=== PATIENT | male | born 1990 | race Caucasian/White ===

== ENCOUNTER 2023-08-07 13:51 | Emergency (ER) | payer OTHER, SELFPAY ==
[2023-08-07 13:58] VITALS: BP 159/112; PULSE 94; TEMP 36.9; O2SAT 98; BMI 42.4
--- NOTE | 2023-08-07 14:32 | CT_ITS ---
[facility] [id number] Patient Name: JARRED JOSÉ MRN: [id number] date: 1990 Sex: M Assigned Patient Location: ER Current Patient Location: ER Accession/Order Number: [id number] Exam Date: 08/07/2023 14:53 Report Date: 08/07/2023 15:37 At the request of: RUBY ERICKSON Procedure: CT lumbar spine wo con EXAM: CT lumbar spine wo con HISTORY: Lumbar radiculopathy COMPARISON: None. TECHNIQUE: CT lumbar spine without contrast. Multiplanar reformats obtained. The current study utilizes one or more of the following dose-reduction techniques: automated exposure control, iterative reconstruction, and/or manual adjustment of tube current and voltage for size. FINDINGS: No evidence of acute fracture or traumatic malalignment. Mild disc bulging and endplate osteophyte formation at the L2-L3 level. Mild rightward spinal canal stenosis. Neural foramen patent. Patent spinal canal neural foramen at the L3-L4 level. 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 Likely involvement of the descending L5 nerve root. Bilateral L4-L5 neural foramen are patent. Moderate disc degeneration at L5-S1 with disc bulging and endplate osteophyte formation. Bilateral L5-S1 neural foramen are grossly patent. Mild to moderate stenosis of the spinal canal at the L5-S1 level. CT/CT lumbar spine wo con IMPRESSION: Disc degeneration and disc extrusion with endplate osteophyte formation at the L4-L5 level. Predominantly right paracentral with moderate to severe narrowing of the right hemicanal. Likely involvement of the descending right L5 nerve root. Electronically authenticated by: SYED SEYMOUR Date: 08/07/2023 15:37
--- NOTE | 2023-08-07 14:33 | ED_ITS ---
HPI HPI - Back Pain/Injury General Chief Complaint: Back Pain/Injury Stated Complaint: LOWER BACK PAIN Time Seen by Provider: 08/07/23 14:16 Source: patient Mode of arrival: walk-in Limitations: no limitations History of Present Illness HPI Narrative: This patient is here complaining of back pain. He has had previous back surgery by Dr. Martinez Pierce a number of years ago. He was told that he had 1 disc replaced but he had 2 more bulging disc but they never got a second or third procedure. He has been doing pretty well. He went to work [employer] and while at work he started experiencing pain. He does some physical labor but he could not describe any 1 specific event that precipitated his discomfort. 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 After he had surgery he did not undergo any other treatment such as epidural injections or physical therapy. He had all those treatments before he eventually had spine surgery. He has no loss of bowel or bladder function. The pain seems today to be rotating from the lumbar area down the lateral aspect of his thigh to the knee area. He did not take any pain decayed's or muscle relaxants before he arrived here in the ER. He does have a primary care doctor. Related Data Home Medications ?Medication ?Instructions ?Recorded ?Confirmed allopurinol 300 mg tablet 300 mg PO DAILY 08/07/23 08/07/23 amlodipine 10 mg tablet 10 mg PO DAILY 08/07/23 08/07/23 cefuroxime axetil 250 mg tablet 250 mg PO Q12H 08/07/23 08/07/23 cyclobenzaprine 10 mg tablet 10 mg PO Q12H 08/07/23 08/07/23 lisinopril 10 mg tablet 10 mg PO DAILY 08/07/23 08/07/23 lisinopril 40 mg tablet 40 mg PO DAILY 08/07/23 08/07/23 prednisone 10 mg tablet 10 mg PO .taper 08/07/23 08/07/23 prednisone 20 mg tablet 20 mg PO Q12H 08/07/23 08/07/23 Allergies Allergy/AdvReac Type Severity Reaction Status Date / Time clarithromycin [From Biaxin] AdvReac Mild Verified 08/07/23 13:56 Opioid HPI Opioid Management Most Recent Opioid Data: Last ED Pain Assessment 08/07/23 14:09 Exam Narrative Exam Narrative: Pleasant gentleman here with his moves about with extreme caution and deliberation. He can sit up straight at the bedside. There is no evidence of vascular ischemia to the lower extremities. Muscle development is good. He is able to do heel walking and toe walking with discomfort but no obvious weakness. Deep tendon reflexes are absent at patella bilaterally. He also has very weak patellar reflex bilaterally but they are symmetrical. He seems to have some weakness on the right extensor houses longus toe strength. Skin integument are otherwise normal there is no indication of shingles or zoster. Constitutional Vital Signs, click to edit/add: Last Vital Signs Temp 98.4 F 08/07/23 13:58 Pulse 83 08/07/23 15:08 Resp 22 H 08/07/23 15:08 BP 135/91 08/07/23 15:08 Pulse Ox 97 08/07/23 15:08 O2 Del Method Room Air 08/07/23 13:58 Course Vital Signs Vital signs: Vital Signs Temperature 98.4 F 08/07/23 13:58 Pulse Rate 94 H 08/07/23 13:58 Respiratory Rate 18 08/07/23 13:58 Blood Pressure 159/112 H 08/07/23 13:58 Pulse Oximetry 98 08/07/23 13:58 Oxygen Delivery Method Room Air 08/07/23 13:58 Temperature 98.4 F 08/07/23 13:58 Pulse Rate 83 08/07/23 15:08 Respiratory Rate 22 H 08/07/23 15:08 Blood Pressure 135/91 08/07/23 15:08 Pulse Oximetry 97 08/07/23 15:08 Oxygen Delivery Method Room Air 08/07/23 13:58 MDM - Back Pain/Injury MDM Narrative Medical decision making narrative: This patient has had surgery previously and was told he has several more discogenic problems. Today's CT scan confirms that information and probable consistent with L5 nerve root irritation. He was given generous dose of analgesic here in the ER and I will give him a prescription. First thing he needs to do is check with his insurance plan to see what providers are in his network and then he needs a referral. If it is his previous physician he should be able to self refer. Otherwise his primary care doctor may have to intervene. He does have prednisone at home he is taking 10 mg 5 times a day and then titrating down. He does have muscle relaxants at home as well. Discharge Plan Discharge Stand Alone Forms: Portal Instructions Chief Complaint: Back Pain/Injury Clinical Impression: Acute lumbar radiculopathy, Lumbar radiculopathy Patient Disposition: Home, Self-Care Time of Disposition Decision: 16:02 Prescriptions / Home Meds: No Action allopurinol 300 mg tablet 300 mg PO DAILY amlodipine 10 mg tablet 10 mg PO DAILY cyclobenzaprine 10 mg tablet 10 mg PO Q12H lisinopril 10 mg tablet 10 mg PO DAILY lisinopril 40 mg tablet 40 mg PO DAILY prednisone 10 mg tablet 10 mg PO .taper prednisone 20 mg tablet 20 mg PO Q12H cefuroxime axetil 250 mg tablet 250 mg PO Q12H Print Language: [place] Additional Instructions: Continue your prednisone/Percocet as needed. Dispense 20/call Wednesday to follow- up with local compliance review specialist Referrals: Physician,Non-Staff, [Primary Care Provider] - 1 week
[2023-08-07] MEDS: HYDROMORPHONE HCL 1 MG/ML CARTRIDGE 2 MG IM (14:44)
[2023-08-07] MEDS: ORPHENADRINE 60 MG/ 2 ML VIAL IM (14:45)
[2023-08-07 15:08] VITALS: BP 135/91; PULSE 83; O2SAT 97
== END 2023-08-07 16:25 | disposition home or self-care (01) ==
PROVIDERS: Emergency Provider Emergency Medicine Emergency Medical Services
DX: M54.16 Radiculopathy, lumbar region (principal); Z79.899 Other long term (current) drug therapy
CPT/HCPCS: 72131; 96372; 99285; J1170